=== PATIENT | male | born 1985 | race Caucasian/White ===

== ENCOUNTER 2017-09-18 15:37 | Emergency (ER) | payer OTHER ==
[~2017-09-18] VITALS: Ht 180.3 cm; Wt 80.0 kg
[2017-09-18 15:41] VITALS: BP 137/71; PULSE 76; RESP 19; TEMP 97.2; O2SAT 100
[2017-09-18 17:16] VITALS: BP 123/75; PULSE 81; RESP 20; TEMP 98; O2SAT 100
[2017-09-18] MEDS ORDERED: SODIUM CHLOR 0.9% 1000 ML INJ 1,000 ML IV SCH (17:42)
[2017-09-18] MEDS ORDERED: KETOROLAC TROMETHAMINE 30 MG/ML (IVP) VIAL IVP ONE (17:45)
[2017-09-18] MEDS ORDERED: SODIUM CHLORIDE 0.9% FLUSH 10 ML FLUSH IV FLUSH PRN (17:45)
--- NOTE | 2017-09-18 17:48 | PD ---
HPI Chief Complaint: GI Complaint Time Seen by Provider: 17:22 Travel History International Travel<30 days: No Contact w/Intl Traveler<30days: No Traveled to known affect area: No History of Present Illness HPI 32-year-old male presents to the emergency department with complaint of nausea, vomiting, fever 1 week. Admits to last using IV drugs approximately 1-1/2 weeks ago. Mention something about noticing that his blood was dark when he injected the drug and withdrew some of his blood. Reports history of sepsis. Reports T-max of 102 point something. Denies ear pain, sore throat, cough, nasal congestion. Denies open wounds. Denies back pain. Denies bilateral lower extremity weakness, encopresis, incontinence, saddle anesthesias. Denies difficulty ambulating. Denies chest pain, shortness of breath, abdominal pain. Says he has diarrhea. Denies hematochezia or hematemesis. Denies dysuria. Reports "my kidneys hurt." Has not taken any medications or tried any treatments to alleviate his symptoms. Rates pain 8/10. Denies history of kidney stones. No primary care provider. No known allergies. Denies significant past medical history. Has no other medical complaints. No other modifying factors or associated signs and symptoms. PFSH Past Medical History Medical other: Yes (HX OF SEPSIS, TREATED AT [facility]) Influenza Vaccination: No Social History Alcohol Use: No Tobacco Use: Yes Substance Use: Yes (IV DRUG USE, USUALLY AMPHETAMINES) Allergies-Medications (Allergen,Severity, Reaction): Coded Allergies: No Known Allergies (Unverified , 09/18/17) Reported Meds & Prescriptions Reported Meds & Active Scripts Active Vistaril (Hydroxyzine Pamoate) 50 Mg Cap 50 Mg PO QID PRN Zofran Odt (Ondansetron Odt) 8 Mg Tab 8 Mg SL Q8H PRN Review of Systems Except as stated in HPI: all other systems reviewed are Neg Physical Exam Narrative GENERAL: Well-nourished, well-developed male patient, in no acute distress; afebrile, nontoxic-appearing SKIN: Warm and dry. No rash. HEAD: Atraumatic. Normocephalic. EYES: Pupils equal and round. No scleral icterus. No injection or drainage. ENT: Mucosa pink and moist. NECK: Trachea midline. CARDIOVASCULAR: Regular rate and rhythm. No murmur appreciated. RESPIRATORY: No accessory muscle use. Clear to auscultation. Breath sounds equal bilaterally. GASTROINTESTINAL: Abdomen soft, tenderness on palpation to bilateral flank areas , nondistended. Hepatic and splenic margins not palpable. Bowel sounds are active 4 quadrants. Bladder nontender and nondistended. MUSCULOSKELETAL: No obvious deformities. No clubbing. No cyanosis. No edema. BACK: Bilateral CVA tenderness. No midline tenderness on palpation of the thoracic or lumbar spine. NEUROLOGICAL: Awake and alert. Oriented 3. No obvious cranial nerve deficits. Motor grossly within normal limits. Normal speech. Moves all extremities. 5/5 strength to all extremities. PSYCHIATRIC: Appropriate mood and affect; insight and judgment normal. Data Data Last Documented VS Vital Signs Date Time Temp Pulse Resp B/P (MAP) Pulse Ox O2 Delivery O2 Flow Rate FiO2 09/18/17 21:07 09/18/17 17:16 98.0 81 20 100 Room Air Orders Orders Complete Blood Count With Diff (09/18/17 17:42) Comprehensive Metabolic Panel (09/18/17 17:42) Lactic Acid Sepsis Protocol (09/18/17 17:42) Urinalysis - C+S If Indicated (09/18/17 17:42) Blood Culture (09/18/17 17:42) Ct Abd/Pel W/O Iv Contrast (09/18/17 17:42) Iv Access Insert/Monitor (09/18/17 17:42) Sodium Chlor 0.9% 1000 Ml Inj (Ns 1000 M (09/18/17 17:42) Sodium Chloride 0.9% Flush (Ns Flush) (09/18/17 17:45) Ketorolac Inj (Toradol Inj) (09/18/17 17:45) Influenzae A/B Antigen (09/18/17 17:42) Chest, Single Ap (09/18/17 17:48) Lipase (09/18/17 17:42) Westergren Sedimentation Rate (09/18/17 18:37) Blood Culture (09/18/17 18:43) C-Reactive Protein (Crp) (09/18/17 18:10) Haloperidol Inj (Haldol Inj) (09/18/17 19:15) Ed Discharge Order (09/18/17 20:55) Labs Laboratory Tests Test 09/18/17 18:00 09/18/17 18:10 09/18/17 18:14 Urine Color LIGHT-YELLOW Urine Turbidity CLEAR Urine pH 5.0 Urine Specific [place] 1.004 Urine Protein NEG mg/dL Urine Glucose (UA) NEG mg/dL Urine Ketones NEG mg/dL Urine Occult Blood NEG Urine Nitrite NEG Urine Bilirubin NEG Urine Urobilinogen LESS THAN 2.0 MG/DL Urine Leukocyte Esterase NEG Urine RBC LESS THAN 1 /hpf Urine WBC LESS THAN 1 /hpf Microscopic Urinalysis Comment CATH-CULT NOT IND Blood Urea Nitrogen 14 MG/DL Creatinine 0.79 MG/DL Random Glucose 76 MG/DL Total Protein 7.6 GM/DL Albumin 3.7 GM/DL Calcium Level 8.9 MG/DL Alkaline Phosphatase 79 U/L Aspartate Amino Transf (AST/SGOT) 44 U/L Alanine Aminotransferase (ALT/SGPT) 133 U/L Total Bilirubin 0.3 MG/DL Sodium Level 141 MEQ/L Potassium Level 3.9 MEQ/L Chloride Level 105 MEQ/L Carbon Dioxide Level 30.1 MEQ/L Anion Gap 6 MEQ/L Estimat Glomerular Filtration Rate 112 ML/MIN Lactic Acid Level 1.0 mmol/L C-Reactive Protein LESS THAN 0.29 MG/DL Lipase 92 U/L White Blood Count 12.0 TH/MM3 Red Blood Count 5.02 MIL/MM3 Hemoglobin 15.2 GM/DL Hematocrit 44.2 % Mean Corpuscular Volume 88.0 FL Mean Corpuscular Hemoglobin 30.3 PG Mean Corpuscular Hemoglobin Concent 34.4 % Red Cell Distribution Width 13.3 % Platelet Count 162 TH/MM3 Mean Platelet Volume 9.3 FL Neutrophils (%) (Auto) 64.7 % Lymphocytes (%) (Auto) 27.2 % Monocytes (%) (Auto) 6.9 % Eosinophils (%) (Auto) 0.9 % Basophils (%) (Auto) 0.3 % Neutrophils # (Auto) 7.8 TH/MM3 Lymphocytes # (Auto) 3.3 TH/MM3 Monocytes # (Auto) 0.8 TH/MM3 Eosinophils # (Auto) 0.1 TH/MM3 Basophils # (Auto) 0.0 TH/MM3 CBC Comment DIFF FINAL Differential Comment Erythrocyte Sedimentation Rate 11 mm/hr [facility] Medical Decision Making Medical Screen Exam Complete: Yes Emergency Medical Condition: Yes Medical Record Reviewed: Yes Differential Diagnosis Sepsis, influenza, pneumonia, gastroenteritis, kidney stones Narrative Course 32-year-old male with history of IV drug use, and last used one and half weeks ago, with complaint of nausea, vomiting, diarrhea, fever 1 week. Says he has history of sepsis and feels these symptoms are similar. Has bilateral flank pain and CVA tenderness on exam. Patient is afebrile and nontoxic-appearing in the ER. Vital signs are stable. IV, CBC, CMP, lipase, urinalysis, blood cultures, lactic acid, chest x-ray, CT abdomen/pelvis, normal saline bolus, Toradol ordered. 1830: Report given to Cory Colon PA-C at change of shift. See his note for final patient disposition. Scripts Hydroxyzine Pamoate (Vistaril) 50 Mg Cap 50 MG PO QID Y for NAUSEA, #28 CAP 0 Refills Prov: Baudilio Hoover MD 09/18/17 Ondansetron Odt (Zofran Odt) 8 Mg Tab 8 MG SL Q8H Y for NAUSEA OR VOMITING, #6 TAB 0 Refills Prov: Baudilio Hoover MD 09/18/17 Demetria Harding Sep 18, 2017 17:48
--- NOTE | 2017-09-18 18:28 | RADRPT ---
EXAM DATE/TIME: 09/18/2017 18:02 [facility] COMPARISON: No previous studies available for comparison. INDICATIONS : Vomiting MEDICAL HISTORY : None. SURGICAL HISTORY : None. ENCOUNTER: Initial ACUITY: 1 day PAIN SCORE: 4/10 LOCATION: chest FINDINGS: A single view of the chest demonstrates the lungs to be symmetrically aerated without evidence of mas s, infiltrate or effusion. The cardiomediastinal contours are unremarkable. Osseous structures are intact. CONCLUSION: Normal examination. Mateusz Glynn MD on September 18, 2017 at 18:25 Board Certified Radiologist. This report was verified electronically.
[2017-09-18 18:36] LABS: BILIRUBIN, URINE NEG (NEG); BLOOD, URINE NEG (NEG); GLUCOSE,URINE NEG (NEG); KETONE, URINE NEG (NEG); NITRITE,URINE NEG (NEG); URINE COLOR LIGHT-YELLOW (YELLW/STRAW); URINE LEUKOCYTE ESTERASE NEG (NEG)
[2017-09-18 18:39] LABS: AUTOMATED NEUTROPHIL # 7.8 TH/MM3 (1.8-7.7); BASOPHIL % 0.3 % (0.0-2.0); EOSINOPHIL # 0.1 TH/MM3 (0-0.4); EOSINOPHIL % 0.9 % (0.0-4.0); HEMATOCRIT 44.2 % (39.0-51.0); HEMOGLOBIN 15.2 GM/DL (13.0-17.0); LYMPH % 27.2 % (9.0-44.0); LYMPHOCYTE # 3.3 TH/MM3 (1.0-4.8); MEAN CORPUSCULAR HEMOGLOBIN 30.3 PG (27.0-34.0); MEAN CORPUSCULAR HGB CONC 34.4 % (32.0-36.0); MEAN PLATELET VOLUME 9.3 FL (7.0-11.0); MONO % 6.9 % (0.0-8.0); MONOCYTE # 0.8 TH/MM3 (0-0.9); NEUT % 64.7 % (16.0-70.0); PLATELET COUNT 162 TH/MM3 (150-450); RED BLOOD COUNT 5.02 MIL/MM3 (4.50-5.90); RED CELL DISTRIBUTION WIDTH 13.3 % (11.6-17.2)
--- NOTE | 2017-09-18 18:59 | RADRPT ---
EXAM DATE/TIME: 09/18/2017 18:46 [facility] COMPARISON: No previous studies available for comparison. INDICATIONS : Bilateral flank pain past few days. ORAL CONTRAST: No oral contrast ingested. RADIATION DOSE: 6.66 CTDIvol (mGy) MEDICAL HISTORY : IV drug abuse SURGICAL HISTORY : None. ENCOUNTER: Initial ACUITY: 3 days PAIN SCALE: 8/10 LOCATION: Bilateral flank TECHNIQUE: Volumetric scanning of the abdomen and pelvis was performed. Using automated exposure control and ad justment of the mA and/or kV according to patient size, radiation dose was kept as low as reasonably achievable to obtain optimal diagnostic quality images. DICOM format image data is available electro nically for review and comparison. FINDINGS: Lung bases are clear. Osseous structures are intact. There is mild hepatic steatosis. Kidneys, spleen , pancreas, adrenals are unremarkable. Urinary bladder unremarkable. No evidence of bowel obstruction . No inflammatory changes are seen within the abdomen or pelvis. No free fluid or free air. CONCLUSION: Fatty liver. Mateusz Glynn MD on September 18, 2017 at 18:55 Board Certified Radiologist. This report was verified electronically.
[2017-09-18 19:01] LABS: ALBUMIN 3.7 GM/DL (3.4-5.0); AST (GOT) 44 U/L (15-37); BICARBONATE 30.1 MEQ/L (21.0-32.0); BLOOD UREA NITROGEN 14 MG/DL (7-18); CALCIUM 8.9 MG/DL (8.5-10.1); CHLORIDE 105 MEQ/L (98-107); CREATININE 0.79 MG/DL (0.60-1.30); GLOMERULAR FILTRATION RATE 112 ML/MIN (>89); GLUCOSE,RANDOM 76 MG/DL (74-106); SODIUM (NA) 141 MEQ/L (136-145)
[2017-09-18 19:05] LABS: ALKALINE PHOSPHATASE 79 U/L (45-117); ALT (GPT) 133 U/L (12-78); C-REACTIVE PROTEIN LESS THAN 0.29 MG/DL (0.00-0.30); TOTAL BILIRUBIN ADULT 0.3 MG/DL (0.2-1.0); TOTAL PROTEIN 7.6 GM/DL (6.4-8.2)
[2017-09-18] MEDS ORDERED: HALOPERIDOL LACTATE 5 MG/ML AMP IV ONE (19:15)
[2017-09-18] MEDS ORDERED: VIST50CA PO (20:54)
[2017-09-18] MEDS ORDERED: ZOFR8TAB4 SL (20:54)
--- NOTE | 2017-09-18 21:00 | PD ---
Physical Exam Date Seen by Provider: Sep 18, 2017 Time Seen by Provider: 20:56 Narrative GENERAL: This is a well-nourished, well-developed patient, in no apparent distress. Patient is resting comfortable in examination room sleeping. He is arousable but falls back to sleep after my history and exam. SKIN: No rashes, ecchymoses or lesions. Warm and dry. HEAD: Atraumatic. Normocephalic. EYES: PERRL, EOMI, no discharge or injection. No scleral icterus. EARS: Clear NOSE: Nasal turbinates appear normal. THROAT: Mucosa pink and moist. Airway patent. NECK: Trachea midline. supple, moves head freely. LUNGS: Clear to auscultation. CV: Regular in rhythm. ABDOMEN: Soft nontender. EXT: No clubbing cyanosis or edema. Data Data Last Documented VS Vital Signs Date Time Temp Pulse Resp B/P (MAP) Pulse Ox O2 Delivery O2 Flow Rate FiO2 09/18/17 17:16 98.0 81 20 123/75 (91) 100 Room Air Orders Orders Complete Blood Count With Diff (09/18/17 17:42) Comprehensive Metabolic Panel (09/18/17 17:42) Lactic Acid Sepsis Protocol (09/18/17 17:42) Urinalysis - C+S If Indicated (09/18/17 17:42) Blood Culture (09/18/17 17:42) Ct Abd/Pel W/O Iv Contrast (09/18/17 17:42) Iv Access Insert/Monitor (09/18/17 17:42) Sodium Chlor 0.9% 1000 Ml Inj (Ns 1000 M (09/18/17 17:42) Sodium Chloride 0.9% Flush (Ns Flush) (09/18/17 17:45) Ketorolac Inj (Toradol Inj) (09/18/17 17:45) Influenzae A/B Antigen (09/18/17 17:42) Chest, Single Ap (09/18/17 17:48) Lipase (09/18/17 17:42) Westergren Sedimentation Rate (09/18/17 18:37) Blood Culture (09/18/17 18:43) C-Reactive Protein (Crp) (09/18/17 18:10) Haloperidol Inj (Haldol Inj) (09/18/17 19:15) Ed Discharge Order (09/18/17 20:55) Labs Laboratory Tests Test 09/18/17 18:00 09/18/17 18:10 09/18/17 18:14 Urine Color LIGHT-YELLOW Urine Turbidity CLEAR Urine pH 5.0 Urine Specific [place] 1.004 Urine Protein NEG mg/dL Urine Glucose (UA) NEG mg/dL Urine Ketones NEG mg/dL Urine Occult Blood NEG Urine Nitrite NEG Urine Bilirubin NEG Urine Urobilinogen LESS THAN 2.0 MG/DL Urine Leukocyte Esterase NEG Urine RBC LESS THAN 1 /hpf Urine WBC LESS THAN 1 /hpf Microscopic Urinalysis Comment CATH-CULT NOT IND Blood Urea Nitrogen 14 MG/DL Creatinine 0.79 MG/DL Random Glucose 76 MG/DL Total Protein 7.6 GM/DL Albumin 3.7 GM/DL Calcium Level 8.9 MG/DL Alkaline Phosphatase 79 U/L Aspartate Amino Transf (AST/SGOT) 44 U/L Alanine Aminotransferase (ALT/SGPT) 133 U/L Total Bilirubin 0.3 MG/DL Sodium Level 141 MEQ/L Potassium Level 3.9 MEQ/L Chloride Level 105 MEQ/L Carbon Dioxide Level 30.1 MEQ/L Anion Gap 6 MEQ/L Estimat Glomerular Filtration Rate 112 ML/MIN Lactic Acid Level 1.0 mmol/L C-Reactive Protein LESS THAN 0.29 MG/DL Lipase 92 U/L White Blood Count 12.0 TH/MM3 Red Blood Count 5.02 MIL/MM3 Hemoglobin 15.2 GM/DL Hematocrit 44.2 % Mean Corpuscular Volume 88.0 FL Mean Corpuscular Hemoglobin 30.3 PG Mean Corpuscular Hemoglobin Concent 34.4 % Red Cell Distribution Width 13.3 % Platelet Count 162 TH/MM3 Mean Platelet Volume 9.3 FL Neutrophils (%) (Auto) 64.7 % Lymphocytes (%) (Auto) 27.2 % Monocytes (%) (Auto) 6.9 % Eosinophils (%) (Auto) 0.9 % Basophils (%) (Auto) 0.3 % Neutrophils # (Auto) 7.8 TH/MM3 Lymphocytes # (Auto) 3.3 TH/MM3 Monocytes # (Auto) 0.8 TH/MM3 Eosinophils # (Auto) 0.1 TH/MM3 Basophils # (Auto) 0.0 TH/MM3 CBC Comment DIFF FINAL Differential Comment Erythrocyte Sedimentation Rate 11 mm/hr [facility] Medical Record Reviewed: Yes Supervised Visit with ASA: Yes Interpretation(s) Laboratory Tests Test 09/18/17 18:00 09/18/17 18:10 09/18/17 18:14 Urine Color LIGHT-YELLOW Urine Turbidity CLEAR Urine pH 5.0 Urine Specific [place] 1.004 Urine Protein NEG mg/dL Urine Glucose (UA) NEG mg/dL Urine Ketones NEG mg/dL Urine Occult Blood NEG Urine Nitrite NEG Urine Bilirubin NEG Urine Urobilinogen LESS THAN 2.0 MG/DL Urine Leukocyte Esterase NEG Urine RBC LESS THAN 1 /hpf Urine WBC LESS THAN 1 /hpf Microscopic Urinalysis Comment CATH-CULT NOT IND Blood Urea Nitrogen 14 MG/DL Creatinine 0.79 MG/DL Random Glucose 76 MG/DL Total Protein 7.6 GM/DL Albumin 3.7 GM/DL Calcium Level 8.9 MG/DL Alkaline Phosphatase 79 U/L Aspartate Amino Transf (AST/SGOT) 44 U/L Alanine Aminotransferase (ALT/SGPT) 133 U/L Total Bilirubin 0.3 MG/DL Sodium Level 141 MEQ/L Potassium Level 3.9 MEQ/L Chloride Level 105 MEQ/L Carbon Dioxide Level 30.1 MEQ/L Anion Gap 6 MEQ/L Estimat Glomerular Filtration Rate 112 ML/MIN Lactic Acid Level 1.0 mmol/L C-Reactive Protein LESS THAN 0.29 MG/DL Lipase 92 U/L White Blood Count 12.0 TH/MM3 Red Blood Count 5.02 MIL/MM3 Hemoglobin 15.2 GM/DL Hematocrit 44.2 % Mean Corpuscular Volume 88.0 FL Mean Corpuscular Hemoglobin 30.3 PG Mean Corpuscular Hemoglobin Concent 34.4 % Red Cell Distribution Width 13.3 % Platelet Count 162 TH/MM3 Mean Platelet Volume 9.3 FL Neutrophils (%) (Auto) 64.7 % Lymphocytes (%) (Auto) 27.2 % Monocytes (%) (Auto) 6.9 % Eosinophils (%) (Auto) 0.9 % Basophils (%) (Auto) 0.3 % Neutrophils # (Auto) 7.8 TH/MM3 Lymphocytes # (Auto) 3.3 TH/MM3 Monocytes # (Auto) 0.8 TH/MM3 Eosinophils # (Auto) 0.1 TH/MM3 Basophils # (Auto) 0.0 TH/MM3 CBC Comment DIFF FINAL Differential Comment Erythrocyte Sedimentation Rate 11 mm/hr Last 24 hours Impressions Chest X-Ray 09/18/17 1068 Signed Impressions: Service Date/Time: Monday, September 18, 2017 18:02 - CONCLUSION: Normal examination. Mateusz Glynn MD Abdomen/Pelvis CT 09/18/17 1742 Signed Impressions: Service Date/Time: Monday, September 18, 2017 18:46 - CONCLUSION: Fatty liver. Mateusz Glynn MD Differential Diagnosis Differential diagnosis: Gastritis, pancreatitis, substance abuse, withdrawal, sepsis, bacteremia, endocarditis Narrative Course I reviewed the history from the prior provider. We have added on additional 3 blood cultures, sed rate and CRP. I have examined the patient. He looks well. He does not appear to be toxic. Vital signs are stable. I do not hear any murmur. The patient's CBC, chemistry, sed rate, CRP and lactic acid are back and reviewed. He has a mildly elevated white count of 12,000 but his sed rate, CRP and lactic are negative. The patient is considered medically stable and can be discharged. Blood cultures will be followed and the patient will be notified of any positive findings. Patient is discharged with Zofran and Vistaril. This is IV drug abuse, withdrawal Diagnosis Primary Impression: IV drug abuse Additional Impression: Withdrawal complaint Referrals: [facility] 2 days [facility] day Patient Instructions: General Instructions Additional Instruction: Rest. Increase fluids. Medications as directed. Follow-up with the [facility] on Wednesday. Follow-up with [facility] for drug detox. Return to the ER for emergencies. Med/Other Pt SpecificInfo: Prescription(s) given Scripts Hydroxyzine Pamoate (Vistaril) 50 Mg Cap 50 MG PO QID Y for NAUSEA, #28 CAP 0 Refills Prov: Baudilio Hoover MD 09/18/17 Ondansetron Odt (Zofran Odt) 8 Mg Tab 8 MG SL Q8H Y for NAUSEA OR VOMITING, #6 TAB 0 Refills Prov: Baudilio Hoover MD 09/18/17 Disposition: 01 DISCHARGE HOME Condition: Stable Cory Colon Sep 18, 2017 21:00
== END 2017-09-18 21:10 | disposition home or self-care (01) ==
LOC: NEPD 15:37
DX: F19.10 Other psychoactive substance abuse, uncomplicated (principal); K76.0 Fatty (change of) liver, not elsewhere classified; R11.2 Nausea with vomiting, unspecified; Z72.0 Tobacco use; Z79.899 Other long term (current) drug therapy
CPT/HCPCS: 71045; 74176; 80053; 81001; 83605; 83690; 85025; 85652; 86140; 87040; 87804; 96361; 96374; 96375; 99285; J1630; J1885; J7030